=== PATIENT | female | born 1985 | race Caucasian/White ===

== ENCOUNTER 2023-07-24 06:15 | Day surgery (SDC) | payer BC ==
[2023-07-20 15:28] VITALS: BMI 30.7
[2023-07-24] MEDS ORDERED: PROPOFOL 40 ML ONE (07:00)
[2023-07-24] MEDS ORDERED: Lidocaine 1% PF 5 ML VIAL ONE (07:01)
[2023-07-24] MEDS ORDERED: PROPOFOL 20 ML ONE ×2 (08:10→08:20)
== END 2023-07-24 08:56 | disposition home or self-care (01) ==
LOC: CSHSDC 06:15
PROVIDERS: ATTEND Internal Medicine Gastroenterology
PROC: 0DB98ZX Excision of Duodenum, Via Natural or Artificial Opening Endoscopic, Diagnostic (ICD-10-PCS; principal; 2023-07-24)
PROC: 0DJD8ZZ Inspection of Lower Intestinal Tract, Via Natural or Artificial Opening Endoscopic (ICD-10-PCS; principal; 2023-07-24)
DX: Z12.11 Encounter for screening for malignant neoplasm of colon (principal); K21.9 Gastro-esophageal reflux disease without esophagitis; K64.9 Unspecified hemorrhoids; E66.9 Obesity, unspecified; Z80.9 Family history of malignant neoplasm, unspecified; Z88.0 Allergy status to penicillin; Z98.890 Other specified postprocedural states; Z68.30 Body mass index [BMI] 30.0-30.9, adult
CPT/HCPCS: 88305; J2704